=== PATIENT | female | born 1935 | race Caucasian/White ===

== ENCOUNTER 2021-02-26 14:54 | Inpatient (IN) | payer MEDICARE, OTHER ==
[~2021-02-26] VITALS: Ht 160 cm; Wt 63.5 kg
--- NOTE | 2021-02-26 15:37 | PHYS DOC ---
General Adult EDM: Chief Complaint: ALTERED MENTAL STATUS HPI: HPI: Patient is a 85-year-old female coming in with daughter from [facility] for altered mental status and sleepiness. Patient's primary care physician at the facility was wanting her to come in for an ABG to monitor for carbon dioxide retention secondary to her COPD. Patient daughter is also concerned about a urinary tract infection due to urinary frequency. Patient denies any pain or shortness of breath. States she just feels tired. Review of Systems: Review of Systems: All other systems within normal limits except for as noted in the HPI Allergies: Allergies: Allergies Coded Allergies Type Severity Reaction Last Updated Verified No Known Drug Allergies 02/26/21 No Physical Exam: PE: Constitutional: Well developed, well nourished, no acute distress, non-toxic appearance. [] HENT: Normocephalic, atraumatic, bilateral external ears normal, nose normal. [] Eyes: PERRLA, conjunctiva normal, no discharge. [] Neck: No rigidity, supple, no stridor. [] Cardiovascular: Regular rate and rhythm, brisk cap refill. Symmetric radial and DP pulses [] Lungs & Thorax: Non labored symmetric respirations, no tachypnea or respiratory distress [] Abdomen: Soft, nondistended. Skin: Warm, dry, no erythema, no rash. [] Back: Unremarkable Extremities: No deformities, range of motion grossly intact, no lower extremity edema [] Neurologic: Alert and oriented X 3, no focal deficits noted. [] Psychologic: Affect normal, judgement normal, mood normal. [] EKG: EKG: Sinus rhythm, heart rate 76 bpm, no ST ovation depression, no ectopy. Normal axis. [] Radiology/Procedures: Radiology/Procedures: AP chest. HISTORY: Altered mental status, COPD AP view was taken of the chest. Heart is upper normal in size. There are interstitial infiltrates or fibrosis in the left lung, the pattern is worsened compared to a CT from December 2014.. There is no pleural effusion. No other acute infiltrates are noted. The aorta is mildly tortuous with atherosclerotic change. IMPRESSION: 1. Mild interstitial infiltrates left lung. 2. COPD. 3. No other acute acute infiltrates. [] Heart Score: C/O Chest Pain: No Risk Factors: Risk Factors: DM, Current or recent (<one month) smoker, HTN, HLP, family history of CAD, obesity. Risk Scores: Score 0 - 3: 2.5% MACE over next 6 weeks - Discharge Home Score 4 - 6: 20.3% MACE over next 6 weeks - Admit for Clinical Observation Score 7 - 10: 72.7% MACE over next 6 weeks - Early Invasive Strategies Course & Med Decision Making: Course & Med Decision Making Pertinent Labs and Imaging studies reviewed. (See chart for details) Discussed with Dr. Raygoza, will admit to the ICU and placed on BiPAP. [] Dragon Disclaimer: Dragon Disclaimer: This electronic medical record was generated, in whole or in part, using a voice recognition dictation system. Departure Departure: Impression: Primary Impression: Hypercapnia Disposition: ADMITTED INPATIENT Admitting Physician: Ronel Raygoza Condition: IMPROVED Referrals: KATARINA BROOKE (PCP) MAIRA LUCERO MD Feb 26, 2021 15:37
[2021-02-26 15:56] LABS: BGAS PH 7.32 (7.35-7.45)
[2021-02-26] MEDS: IV NORMAL SALINE 1,000ML 1,000 ML IV SCH (16:15)
[2021-02-26] MEDS ORDERED: MORPHINE SULFATE 2 MG/ML DISP.SYRIN. IVP PRN (16:15)
[2021-02-26] MEDS ORDERED: ACETAMINOPHEN 325 MG TABLET PO PRN (16:15)
[2021-02-26] MEDS ORDERED: ONDANSETRON PF 4 MG/2 ML VIAL. IVP PRN (16:15)
--- NOTE | 2021-02-26 16:17 | RAD ---
AP chest. HISTORY: Altered mental status, COPD AP view was taken of the chest. Heart is upper normal in size. There are interstitial infiltrates or fibrosis in the left lung, the pattern is worsened compared to a CT from December 2014.. There is no pleural effusion. No other acute infiltrates are noted. The aorta is mildly tortuous with atheroscler otic change. IMPRESSION: 1. Mild interstitial infiltrates left lung. 2. COPD. 3. No other acute acute infiltrates. Electronically signed by: Karl Hamm MD (02/26/2021 4:14 PM) [facility]
[2021-02-26 16:18] LABS: BASO % 1 % (0-3); EOS # 0.2 x10^3/uL (0.0-0.7); EOS % 5 % (0-3); HEMATOCRIT 27.9 % (36.0-47.0); HEMOGLOBIN 9.1 g/dL (12.0-15.5); LYMPH # 0.5 x10^3/uL (1.0-4.8); LYMPH % 16 % (24-48); MEAN CORPUSCULAR HEMOGLOBIN 29 pg (25-35); MEAN CORPUSCULAR HGB CONC 33 g/dL (31-37); MEAN CORPUSCULAR VOLUME 88 fL (79-100); MONO # 0.6 x10^3/uL (0.0-1.1); MONO % 18 % (0-9); NEUT # 2.1 x10^3uL (1.8-7.7); NEUT % 61 % (31-73); PLATELET COUNT 249 x10^3/uL (140-400); RED BLOOD COUNT 3.19 x10^6/uL (3.50-5.40); RED CELL DISTRIBUTION WIDTH 13.3 % (11.5-14.5); WHITE BLOOD COUNT 3.5 x10^3/uL (4.0-11.0)
--- NOTE | 2021-02-26 16:25 | EKG ---
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
[2021-02-26 16:32] LABS: CALCIUM 8.7 mg/dL (8.5-10.1); CREATININE 0.9 mg/dL (0.6-1.0); GFR 59.8; POTASSIUM 4.1 mmol/L (3.5-5.1)
[2021-02-26 16:37] LABS: ALBUMIN 2.7 g/dL (3.4-5.0); ALBUMIN/GLOBULIN RATIO 0.7 (1.0-1.7); MAGNESIUM 1.8 mg/dL (1.8-2.4); PHOSPHORUS 4.1 mg/dL (2.6-4.7); TOTAL BILIRUBIN 0.2 mg/dL (0.2-1.0); TOTAL PROTEIN 6.4 g/dL (6.4-8.2)
[2021-02-26 16:50] LABS: BILIRUBIN,URINE NEG (NEG); CLARITY,URINE CLEAR; COLOR,URINE YELLOW; GLUCOSE,URINE NEG (NEG); NITRITE,URINE NEG (NEG); RBC,URINE OCC /HPF (0-2)
[2021-02-26 16:51] LABS: BACTERIA,URINE MOD /HPF (0-FEW); SQUAMOUS EPITHELIAL CELL,UR MANY /LPF
[2021-02-26 18:10] VITALS: BP 152/68
[2021-02-26 18:26] VITALS: BP 145/75
[2021-02-26 19:00] VITALS: BP 131/61
[2021-02-26] MEDS ORDERED: ALPR0.5T PO (19:43)
[2021-02-26] MEDS ORDERED: LOSA50TA86 PO (19:43)
[2021-02-26] MEDS ORDERED: MAGN400O7 PO (19:43)
[2021-02-26] MEDS ORDERED: MULT-237 PO (19:43)
[2021-02-26] MEDS ORDERED: POTA10TA5 PO (19:43)
[2021-02-26] MEDS ORDERED: BUDE0.25 IH (19:43)
[2021-02-26] MEDS ORDERED: ASPI-424 PO (19:43)
[2021-02-26] MEDS ORDERED: BISA10SU4 RC (19:43)
[2021-02-26] MEDS ORDERED: CITA10TA8 PO (19:43)
[2021-02-26] MEDS ORDERED: DILT120T PO (19:43)
[2021-02-26] MEDS ORDERED: DOCU-109 PO (19:43)
[2021-02-26] MEDS ORDERED: ONDA4TAB7 PO (19:43)
[2021-02-26] MEDS ORDERED: BUME1TAB3 PO (19:43)
[2021-02-26] MEDS ORDERED: OMEP20TA63 PO (19:43)
[2021-02-26] MEDS ORDERED: BISACODYL 10 MG SUPP.RECT RC PRN (20:30)
[2021-02-26] MEDS ORDERED: MAGNESIUM HYDROXIDE 2,400 MG/30 ML ORAL.SUSP. PO PRN (20:30)
[2021-02-26] MEDS ORDERED: IPRATRPIUM/ALBUTEROL 0.5/2.5MG 3 ML NEBU. NEB PRN (20:30)
[2021-02-26 21:00] VITALS: BP 148/67
[2021-02-26] MEDS ORDERED: BUDESONIDE 0.25 MG IH SCH (21:00)
[2021-02-26] MEDS ORDERED: ONDANSETRON ODT 4 MG TAB.RAPDIS PO PRN (21:00)
[2021-02-26 21:05] LABS: BGAS PH 7.32 (7.35-7.45)
[2021-02-26] MEDS: DOCUSATE SODIUM 100 MG CAPSULE PO SCH (21:39)
[2021-02-26] MEDS: POTASSIUM CHLORIDE 10 MEQ TABLET.ER. PO SCH (21:39)
[2021-02-26] MEDS: ALPRAZolam 0.5 MG TABLET PO SCH (21:40)
[2021-02-26 21:52] VITALS: BP 150/79
--- NOTE | 2021-02-26 22:38 | EKG ---
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
[2021-02-26 22:44] VITALS: BP 123/49
[2021-02-27] VITALS (21 sets, daily range): BP systolic 114–150; BP diastolic 50–75
[2021-02-27 07:04] LABS: CREATININE 0.7 mg/dL (0.6-1.0); GFR 79.9; POTASSIUM 4.3 mmol/L (3.5-5.1)
[2021-02-27 07:05] LABS: BASO % 1 % (0-3); EOS # 0.2 x10^3/uL (0.0-0.7); EOS % 5 % (0-3); HEMATOCRIT 28.3 % (36.0-47.0); HEMOGLOBIN 9.3 g/dL (12.0-15.5); LYMPH # 0.4 x10^3/uL (1.0-4.8); LYMPH % 12 % (24-48); MEAN CORPUSCULAR HEMOGLOBIN 29 pg (25-35); MEAN CORPUSCULAR HGB CONC 33 g/dL (31-37); MEAN CORPUSCULAR VOLUME 88 fL (79-100); MONO # 0.5 x10^3/uL (0.0-1.1); MONO % 14 % (0-9); NEUT # 2.5 x10^3uL (1.8-7.7); NEUT % 68 % (31-73); PLATELET COUNT 250 x10^3/uL (140-400); RED BLOOD COUNT 3.23 x10^6/uL (3.50-5.40); RED CELL DISTRIBUTION WIDTH 13.2 % (11.5-14.5); WHITE BLOOD COUNT 3.6 x10^3/uL (4.0-11.0)
[2021-02-27] MEDS: MULTIVITAMIN with MINERAL TABLET. PO SCH (08:12)
[2021-02-27] MEDS: ALPRAZolam 0.5 MG TABLET PO SCH ×2 (08:12→21:46)
[2021-02-27] MEDS: PANTOPRAZOLE 40 MG TABLET. PO SCH (08:12)
[2021-02-27] MEDS: ASPIRIN ENTERIC COATED 81 MG TABLET.DR. PO SCH (08:12)
[2021-02-27] MEDS: CITALOPRAM 10 MG TABLET. PO SCH (08:12)
[2021-02-27] MEDS: LOSARTAN 50 MG TABLET. PO SCH (08:13)
[2021-02-27] MEDS: DOCUSATE SODIUM 100 MG CAPSULE PO SCH ×2 (08:13→21:46)
[2021-02-27] MEDS: POTASSIUM CHLORIDE 10 MEQ TABLET.ER. PO SCH ×2 (08:15→21:46)
[2021-02-27] MEDS: BUDESONIDE 0.5 MG/2 ML NEBU NEB SCH ×2 (08:15→20:00)
[2021-02-27] MEDS: BUMETANIDE 1 MG TABLET PO SCH (08:15)
[2021-02-27] MEDS ORDERED: methylPREDNISolone SOD SUCC PF 125 MG/2 ML VIAL. IV ONE (12:15)
[2021-02-27] MEDS: IV NORMAL SALINE 1,000ML 1,000 ML IV SCH (12:15)
[2021-02-27] MEDS ORDERED: AMOXICILLIN/K CLAV 500/125MG TABLET. PO SCH (12:30)
[2021-02-27] MEDS ORDERED: IOHEXOL 350 MG/ML 100 ML VIAL. IV ONE (12:30)
[2021-02-27] MEDS: OXYBUTYNIN CHLORIDE 5 MG TABLET PO SCH ×2 (13:00→21:46)
--- NOTE | 2021-02-27 13:32 | RAD ---
EXAM: CT angiography of the chest with intravenous contrast. HISTORY: Shortness of breath. TECHNIQUE: Computed tomographic images of the chest were obtained following the administration of int ravenous contrast according to angiography protocol. Multiplanar reformatting was performed and three dimensional maximum intensity projection images were obtained. *One or more of the following individualized dose reduction techniques were utilized for this examina tion: 1. Automated exposure control. 2. Adjustment of the mA and/or kV according to patient size. 3. Use of iterative reconstruction technique. COMPARISON: None. FINDINGS: There is no evidence of pulmonary embolism. There are prominent central pulmonary arteries likely due to a component of pulmonary artery hypertension. There is cardia megaly. There is calcifie d atherosclerotic plaque involving the coronary arteries and aorta and aortic branch vessels. There a re nonspecific mediastinal and hilar lymph nodes. These may be reactive in etiology. There is pulmonary emphysema. There is inferior lateral left upper lobe interstitial infiltrate likel y superimposed on chronic interstitial changes. There is also left basilar atelectasis or infiltrate in a small left pleural effusion. There is a trace right pleural effusion with posterior dependent at electasis. There is adrenal gland thickening. No suspicious adrenal lesion is seen. The gallbladder i s absent. The stomach is distended. There are degenerative changes throughout the spine. There is no acute osseous finding. IMPRESSION: 1. No evidence of pulmonary embolism. 2. Suspected lateral left upper lobe interstitial infiltrate superimposed on chronic interstitial nick nges. There is also a small left pleural effusion with basilar atelectasis or interstitial infiltrate 3. Trace right pleural effusion with right basilar atelectasis. 4. Severe emphysema. 5. Cardiomegaly, atherosclerosis and findings suggesting chronic pulmonary artery hypertension. 6. Nonspecific mediastinal and hilar lymph nodes, likely reactive given the aforementioned finding. Electronically signed by: Charissa Medrano MD (02/27/2021 1:30 PM) [id number]
--- NOTE | 2021-02-27 14:00 | HP ---
ADMIT DATE: 02/26/2021 HISTORY OF PRESENT ILLNESS: The patient is an 85-year-old female patient, currently at [facility] for rehabilitation after admission to [facility] for COPD exacerbation. She was brought to the emergency room with altered mental status and sleepiness, we have actually investigated her extensively there and all her lab work and chest x-ray were unremarkable. However, because of altered mental status and our inability to check her blood gases, a decision was made to send her to [facility] to check her blood gas. She was retaining carbon dioxide and in turn to be admitted if need be. She was actually seen in the emergency room and her blood gases showed a pH of 7.32, pCO2 of 75, pO2 was 200, bicarbonate was clearly high at 38 and oxygen saturation 100% on FIO2 of 36% and therefore, the patient was admitted with acute on chronic hypoxic hypercapnic respiratory failure, COPD exacerbation. Her lab work showed her white cell count was in fact only 3.5. She has also anemia that is normochromic normocytic with a hemoglobin of 9, hematocrit 27 with the platelet count 249,000. She has also urinary frequency and urgency; however, her urinalysis is essentially unremarkable. She was admitted and with the plan to start her on BiPAP machine; however, given the fact that her pO2 was high at 200, we decided to cut down on her oxygen as that might be the reason for her carbon dioxide or at least in part her carbon dioxide retention and the patient herself was very lethargic and did not complain of any chest pain. PAST MEDICAL HISTORY: Significant for chronic obstructive pulmonary disease, acute on chronic respiratory failure with hypoxia, acute on chronic diastolic congestive heart failure, pulmonary hypertension, paroxysmal atrial fibrillation, oropharyngeal dysphagia, hypertensive heart disease, anxiety disorder, dependence on supplemental oxygen. PAST SURGICAL HISTORY: Unremarkable. ALLERGIES: She has no known drug allergies. MEDICATIONS: She was on the following medications: She is on diltiazem hydrochloride 120 mg once a day, losartan potassium 50 mg once a day, aspirin 81 mg once a day, citalopram hydrobromide for Celexa 10 mg once a day, alprazolam 0.5 mg twice a day, potassium chloride 10 mEq twice a day, bumetanide 1 mg daily, budesonide 0.5/2 mL twice a day, bisacodyl 2 mg rectally daily p.r.n. for constipation, Colace 100 mg twice a day, magnesium hydroxide for milk of magnesia 30 mL p.o. daily p.r.n. for constipation, ondansetron 4 mg IV every 6 hours, omeprazole 40 mg once a day, multivitamin one tablet once a day. FAMILY HISTORY: Noncontributory. SOCIAL HISTORY: She lives alone. She does not smoke, drink alcohol or do any recreational drugs. She has had daughter who is supportive. REVIEW OF SYSTEMS: As per history of present illness. PHYSICAL EXAMINATION: GENERAL: On arrival to the emergency room, the patient looked pale, somewhat cachectic, but no jaundice, cyanosis or thyromegaly. No jugular venous distention or edema. VITAL SIGNS: Her heart rate was 81, blood pressure was 131/68, temperature was 98.3, respiratory rate was 18, and oxygen saturation was 96% on 3 liters of oxygen by nasal cannula. HEAD, EYES, EARS, NOSE AND THROAT: Normocephalic, atraumatic. NECK: Supple. HEART: Showed normal first and second heart sounds, no gallop, murmur. CHEST: Central trachea. Equal reduced expansion, reduced air entry. Vesicular breath sounds. I could not appreciate any rhonchi, but she has crepitation mostly in the right side posteriorly. ABDOMEN: Scaphoid, soft, nontender. NEUROLOGIC: She was lethargic, but arousable. Cranial nerves intact. She moves extremities without difficulty. She has no obvious neurological deficit. Her affect, judgment and mood were all normal. LABORATORY DATA: Her EKG showed a heart rate of 76 beats per minute. Her chest x-ray showed mild interstitial infiltrate in the left lung. No other acute infiltrate and obviously markedly hyperinflated lungs. The patient was admitted with acute hypercapnic respiratory failure, COPD exacerbation. Her lab work on admission showed a white cell count of 3500, hemoglobin 9, hematocrit 27, MCV 88 and platelet count 249,000 with a manual differential shows 61% polymorphs, 16% lymphocytes, 18% monocytes and 5% eosinophils. Her chemistry showed a serum sodium 137, potassium 4.1, chloride 101, bicarbonate 36, anion gap of 0, BUN of 17, creatinine 0.9. Estimated GFR was 59 mL per minute. Her glucose was 126, calcium was 8.7, phosphorus was 4.1, magnesium was 1.8. Total bilirubin, AST, ALT, alkaline phosphatase were normal. Total protein 6.4, albumin was 2.7 and her urinalysis showed the urine was yellow, clear with a pH of 6, specific gravity of 1.025. The urine showed trace of protein, but negative for glucose, ketones, trace of blood, negative for nitrite and leukocyte esterase. In summary, this is an 85-year-old female patient, was admitted with acute hypercapnic respiratory failure, COPD exacerbation. She is known to have chronic diastolic congestive heart failure, pulmonary hypertension, paroxysmal atrial fibrillation that is rate controlled, not anticoagulated. Anxiety disorder and dependence on supplemental oxygen. Initially, we cut down her oxygen to see if that will improve and we did repeat her blood gas again that showed a pH of 7.32, pCO2 of 70, pO2 of 68, bicarbonate 36 and oxygen saturation was 91% on FIO2 28%. We will observe her overnight and see how she does with that and continue with all her medications. JENN DR: Bibiana TID: [id number]
[2021-02-27] MEDS: PIPERACILLIN/TAZOBACTAM 3.375 GM in IV NORMAL SALINE 50ML 50 ML IV SCH (18:41)
[2021-02-27] MEDS: IPRATRPIUM/ALBUTEROL 0.5/2.5MG 3 ML NEBU. NEB SCH ×2 (18:42→20:28)
[2021-02-27] MEDS ORDERED: BUDESONIDE 0.5 MG/2 ML NEBU NEB SCH (20:00)
[2021-02-27] MEDS: methylPREDNISolone SOD SUCC PF 40 MG/ML VIAL. IV SCH (20:27)
[2021-02-27 21:17] LABS: BGAS PH 7.35 (7.35-7.45)
[2021-02-27] MEDS ORDERED: ALBUTEROL SULFATE 2.5 MG/3 ML NEBU. NEB PRN (21:45)
[2021-02-27] MEDS: MONTELUKAST 10 MG TABLET. PO SCH (21:46)
[2021-02-27] MEDS: LINEZOLID 600 MG TABLET PO SCH (21:47)
[2021-02-28] VITALS (22 sets, daily range): BP systolic 95–151; BP diastolic 53–71
[2021-02-28] MEDS: PIPERACILLIN/TAZOBACTAM 3.375 GM in IV NORMAL SALINE 50ML 50 ML IV SCH ×4 (00:59→18:01)
--- NOTE | 2021-02-28 01:08 | PN ---
DATE: 02/27/2021 SUBJECTIVE: The patient was admitted yesterday with altered mental status, was found to be in acute hypercapnic respiratory failure. We did cut down her oxygen and repeated her labs to bring her carbon dioxide down from 75-70; however, she continued to be extremely short of breath and desaturates immediately with any exertion. PHYSICAL EXAMINATION: GENERAL: When I examined her this morning, she looked pale, cachectic, but not jaundiced and cyanosed. No lymphadenopathy, no thyromegaly. No jugular venous distention or edema. VITAL SIGNS: Heart rate was 76, blood pressure is 114/55. Her temperature was 98.3, respiratory rate 20, and oxygen saturation was 97% on 3 liters of oxygen at rest. HEAD, EYES, EARS, NOSE AND THROAT: Normocephalic, atraumatic. NECK: Supple. HEART: Normal first and second heart sounds, no gallop, murmur. CHEST: Central trachea. Equal reduced expansion, reduced air entry. Vesicular breath sounds with crepitation mostly on the right side posteriorly. I could not appreciate any rhonchi. ABDOMEN: Scaphoid, soft, nontender. NEUROLOGIC: She is awake, alert, responding appropriately. Cranial nerves intact. She moves extremities without difficulty. LABORATORY DATA: This morning showed her white cell count to be still low at 3.6, hemoglobin 9.3, hematocrit was 28, MCV was 88 and platelet count 250,000. Her chemistry showed that her serum sodium was 137, potassium 4.3, chloride 100, bicarbonate 37, anion gap 0, BUN 16, creatinine 0.7. Estimated GFR was 80 mL per minute. Her glucose 110, calcium was 9. IMPRESSION: 1. Acute hypercapnic respiratory failure. 2. Chronic obstructive pulmonary disease exacerbation, questionable, perhaps healthcare-associated pneumonia, although the patient is afebrile. Her white cell count is normal; however, the nursing staff that her sputum was yellowish in color and therefore, decision was made to start her on steroids at 125 mg initially and then 40 mg IV q.8 hours. We will start her on Augmentin 500/125 one tablet twice a day, Singulair 10 mg at bedtime, Pulmicort 0.5 mg 2 mL by nebulizer twice a day. We will also arrange for her to have a CT scan of the chest with PE protocol and add oxybutynin because of her overactive bladder. AMM/JAN DR: Bibiana TID: [id number]
[2021-02-28] MEDS: methylPREDNISolone SOD SUCC PF 40 MG/ML VIAL. IV SCH ×3 (06:29→22:03)
[2021-02-28 07:14] LABS: HEMATOCRIT 28.2 % (36.0-47.0); HEMOGLOBIN 9.3 g/dL (12.0-15.5); RED BLOOD COUNT 3.24 x10^6/uL (3.50-5.40); RED CELL DISTRIBUTION WIDTH 12.9 % (11.5-14.5); WHITE BLOOD COUNT 7.1 x10^3/uL (4.0-11.0)
[2021-02-28 07:18] LABS: ALBUMIN 2.7 g/dL (3.4-5.0); ALBUMIN/GLOBULIN RATIO 0.7 (1.0-1.7); CALCIUM 9.3 mg/dL (8.5-10.1); CREATININE 0.8 mg/dL (0.6-1.0); GFR 68.5; POTASSIUM 4.5 mmol/L (3.5-5.1); TOTAL BILIRUBIN 0.2 mg/dL (0.2-1.0); TOTAL PROTEIN 6.7 g/dL (6.4-8.2)
[2021-02-28] MEDS: BUDESONIDE 0.5 MG/2 ML NEBU NEB SCH ×2 (08:07→20:19)
[2021-02-28] MEDS: LOSARTAN 50 MG TABLET. PO SCH (08:07)
[2021-02-28] MEDS: MULTIVITAMIN with MINERAL TABLET. PO SCH (08:07)
[2021-02-28] MEDS: DOCUSATE SODIUM 100 MG CAPSULE PO SCH ×2 (08:07→20:19)
[2021-02-28] MEDS: LINEZOLID 600 MG TABLET PO SCH ×2 (08:08→20:19)
[2021-02-28] MEDS: ASPIRIN ENTERIC COATED 81 MG TABLET.DR. PO SCH (08:08)
[2021-02-28] MEDS: ALPRAZolam 0.5 MG TABLET PO SCH ×2 (08:08→20:19)
[2021-02-28] MEDS: POTASSIUM CHLORIDE 10 MEQ TABLET.ER. PO SCH ×2 (08:08→20:19)
[2021-02-28] MEDS: OXYBUTYNIN CHLORIDE 5 MG TABLET PO SCH ×2 (08:08→20:19)
[2021-02-28] MEDS: PANTOPRAZOLE 40 MG TABLET. PO SCH (08:09)
[2021-02-28] MEDS: BUMETANIDE 1 MG TABLET PO SCH (08:09)
[2021-02-28] MEDS: CITALOPRAM 10 MG TABLET. PO SCH (08:09)
[2021-02-28] MEDS: LACTOBACILLUS RHAMNOSUS GG 1 CAPSULE. PO SCH ×2 (08:10→20:19)
--- NOTE | 2021-02-28 12:43 | EKG ---
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
[2021-02-28] MEDS: MONTELUKAST 10 MG TABLET. PO SCH (20:19)
[2021-03-01] VITALS (25 sets, daily range): BP systolic 127–160; BP diastolic 67–98
[2021-03-01] MEDS: PIPERACILLIN/TAZOBACTAM 3.375 GM in IV NORMAL SALINE 50ML 50 ML IV SCH ×5 (00:02→23:35)
[2021-03-01] MEDS: methylPREDNISolone SOD SUCC PF 40 MG/ML VIAL. IV SCH ×3 (05:37→21:49)
[2021-03-01 06:33] LABS: HEMATOCRIT 28.5 % (36.0-47.0); HEMOGLOBIN 9.2 g/dL (12.0-15.5); RED BLOOD COUNT 3.26 x10^6/uL (3.50-5.40); RED CELL DISTRIBUTION WIDTH 13.2 % (11.5-14.5)
[2021-03-01 06:52] LABS: ALBUMIN 2.7 g/dL (3.4-5.0); ALBUMIN/GLOBULIN RATIO 0.7 (1.0-1.7); CALCIUM 8.8 mg/dL (8.5-10.1); CREATININE 0.9 mg/dL (0.6-1.0); GFR 59.8; POTASSIUM 4.5 mmol/L (3.5-5.1); TOTAL BILIRUBIN 0.2 mg/dL (0.2-1.0); TOTAL PROTEIN 6.5 g/dL (6.4-8.2)
[2021-03-01 08:17] LABS: BGAS PH 7.34 (7.35-7.45)
[2021-03-01] MEDS: PANTOPRAZOLE 40 MG TABLET. PO SCH (08:42)
[2021-03-01] MEDS: BUMETANIDE 1 MG TABLET PO SCH (08:42)
[2021-03-01] MEDS: ASPIRIN ENTERIC COATED 81 MG TABLET.DR. PO SCH (08:42)
[2021-03-01] MEDS: ALPRAZolam 0.5 MG TABLET PO SCH ×2 (08:43→20:26)
[2021-03-01] MEDS: DOCUSATE SODIUM 100 MG CAPSULE PO SCH ×2 (08:43→20:27)
[2021-03-01] MEDS: LINEZOLID 600 MG TABLET PO SCH ×2 (08:43→20:26)
[2021-03-01] MEDS: OXYBUTYNIN CHLORIDE 5 MG TABLET PO SCH ×2 (08:43→20:27)
[2021-03-01] MEDS: LACTOBACILLUS RHAMNOSUS GG 1 CAPSULE. PO SCH ×2 (08:43→20:26)
[2021-03-01] MEDS: CITALOPRAM 10 MG TABLET. PO SCH (08:43)
[2021-03-01] MEDS: MULTIVITAMIN with MINERAL TABLET. PO SCH (08:43)
[2021-03-01] MEDS: LOSARTAN 50 MG TABLET. PO SCH (08:44)
[2021-03-01] MEDS: BUDESONIDE 0.5 MG/2 ML NEBU NEB SCH ×2 (08:45→20:27)
[2021-03-01] MEDS: POTASSIUM CHLORIDE 10 MEQ TABLET.ER. PO SCH ×2 (08:46→20:26)
--- NOTE | 2021-03-01 09:36 | PN ---
DATE: 02/28/2021 SUBJECTIVE: The patient is resting, slightly propped up in bed, in no apparent respiratory distress. PHYSICAL EXAMINATION: GENERAL: She is awake, alert, pale. No jaundice, cyanosis or thyromegaly. VITAL SIGNS: Heart rate was 82, blood pressure was 133/64, temperature was 98.7, respiratory rate was 18 and oxygen saturation was 93% on 3 liters of oxygen. HEENT: Normocephalic, atraumatic. NECK: Supple. HEART: Normal first and second heart sounds. No gallop, rub or murmur. CHEST: Shows central trachea, equal and reduced expansion, reduced air entry, vesicular breath sounds. Very few crepitations, mostly in the left side posteriorly. I could not appreciate any rhonchi, although she has obviously received breathing treatment. ABDOMEN: Scaphoid, soft, nontender. NEUROLOGIC: She is awake, alert, responding appropriately. All cranial nerves intact. She moves extremities without difficulty. Unfortunately, she desaturates immediately with any exertion. When she was on 4 liters of oxygen, her carbon dioxide had risen dramatically; we cut that down to 3 liters now. Her most recent blood gases as of yesterday showed a pH of 7.35, pCO2 of 66, pO2 of 57, bicarbonate 37 and oxygen saturation was 87% on FiO2 of ____%. LABORATORY DATA: This morning showed a white cell count of 7000, hemoglobin 9.3, hematocrit 28, MCV 87 and platelet count 292,000. Her chemistry showed a serum sodium of 137, potassium 4.5, chloride 97, bicarbonate 36, anion gap of 4, BUN 20, creatinine 0.8. Estimated GFR was 68 mL per minute. Her glucose 139, calcium was 9.3. Total bilirubin, AST, ALT, alkaline phosphatase were normal. Beta natriuretic peptide was 480, total protein was 6.7, albumin was 2.7. Urinalysis essentially unremarkable. ASSESSMENT: 1. Acute hypercapnic respiratory failure. 2. Chronic obstructive pulmonary disease exacerbation. 3. Healthcare-associated pneumonia. 4. Acute on chronic diastolic congestive heart failure. 5. Atrial fibrillation, rate controlled, not anticoagulated. PLAN: To continue with current plan of management. I spoke with her daughter and explained that she is stable and, if anything, she looks somewhat better in terms of blood gases. We will consult physical and occupational therapy, and see if we can work with her with a higher oxygen on exertion and, if obviously showed any signs of deterioration, we can always transfer her to [facility]. When I broached the subject of DNR/DNI, the daughter did not want to talk about it and said that if she shows any signs of deterioration, she wants to be transferred to [facility], although the patient herself said that she does not want any chest compression, does not want any cardioversion or intubation. DERICK DR: Bibiana TID: [id number]
[2021-03-01] MEDS: MONTELUKAST 10 MG TABLET. PO SCH (20:26)
[2021-03-02] VITALS (14 sets, daily range): BP systolic 143–166; BP diastolic 74–90
[2021-03-02] MEDS: methylPREDNISolone SOD SUCC PF 40 MG/ML VIAL. IV SCH ×3 (05:34→21:55)
[2021-03-02] MEDS: PIPERACILLIN/TAZOBACTAM 3.375 GM in IV NORMAL SALINE 50ML 50 ML IV SCH ×4 (05:35→23:44)
[2021-03-02 06:08] LABS: HEMATOCRIT 29.1 % (36.0-47.0); HEMOGLOBIN 9.5 g/dL (12.0-15.5); RED BLOOD COUNT 3.34 x10^6/uL (3.50-5.40); RED CELL DISTRIBUTION WIDTH 13.4 % (11.5-14.5)
[2021-03-02 06:28] LABS: ALBUMIN 2.5 g/dL (3.4-5.0); ALBUMIN/GLOBULIN RATIO 0.7 (1.0-1.7); CALCIUM 8.7 mg/dL (8.5-10.1); CREATININE 0.9 mg/dL (0.6-1.0); GFR 59.8; POTASSIUM 4.8 mmol/L (3.5-5.1); TOTAL BILIRUBIN 0.2 mg/dL (0.2-1.0)
[2021-03-02] MEDS: PANTOPRAZOLE 40 MG TABLET. PO SCH (07:30)
[2021-03-02] MEDS: BUMETANIDE 1 MG TABLET PO SCH (09:00)
[2021-03-02] MEDS: BUDESONIDE 0.5 MG/2 ML NEBU NEB SCH ×2 (09:13→20:11)
[2021-03-02 09:30] LABS: BGAS PH 7.38 (7.35-7.45)
--- NOTE | 2021-03-02 09:41 | PN ---
DATE: 03/01/2021 SUBJECTIVE: The patient is resting, slightly propped up in bed in no apparent distress. She seemed to be somewhat more confused today; however, she managed to walk with physical therapy, placed inside her room. She has an episode of rapid AFib nighttime, although I do not see documented anywhere here. OBJECTIVE: GENERAL: When I examined her, she looked well and was clearly in no apparent respiratory distress. She was pale, but no jaundice, cyanosis, no lymphadenopathy, no thyromegaly, no jugular venous distention, no lower limb edema. VITAL SIGNS: Her heart rate was 78, blood pressure is 139/74, temperature was 98.9, respiratory rate was 17 and oxygen saturation was 92% on 3 liters of oxygen. HEAD, EYES, EARS, NOSE AND THROAT: Normocephalic, atraumatic. NECK: Supple. HEART: Showed normal first and second heart sounds, no gallop, murmur. CHEST: Shows central trachea equally reduced expansion, reduced air entry, vesicular breath sounds. I could not appreciate if there is some few crepitations heard posteriorly on the left side. I could not appreciate any rhonchi. ABDOMEN: Distended, soft, nontender. NEUROLOGIC: She is awake, alert, somewhat confused. All cranial nerves intact. She moves extremities without difficulty. Her intake was 1800. No output was recorded. LABORATORY DATA: This morning showed a white cell count 12,000, hemoglobin 9, hematocrit 28, MCV 87, platelet count 320,000. Serum sodium 137, potassium 4.5, chloride 99, bicarbonate 35, anion gap of 3, BUN 22, creatinine 0.9. Estimated GFR was 59 mL per minute. Her glucose was 180. Calcium was 8.8. Total bilirubin, AST, ALT, alkaline phosphatase were normal. Her total protein is 6.5, albumin was 2.7. Her blood gas this morning showed a pH of 7.34, pCO2 of 69, pO2 of 76, bicarbonate 37 and oxygen saturation was 93% on FIO2 of 34%. ASSESSMENT: 1. Acute hypercapnic respiratory failure. 2. Chronic obstructive pulmonary disease exacerbation. 3. Healthcare-associated pneumonia. 4. Acute on chronic diastolic congestive heart failure. 5. Atrial fibrillation, rate controlled, not anticoagulated. 6. Pulmonary hypertension. PLAN: Obviously to continue with Solu-Medrol. Continue with IV antibiotic. Continue with bronchodilators. Continue with diuretics. For today, I will evaluate her again and hopefully discharge her back to [facility]. RHETT/BUCK DR: Bibiana TID: [id number]
[2021-03-02] MEDS: LOSARTAN 50 MG TABLET. PO SCH (09:54)
[2021-03-02] MEDS: POTASSIUM CHLORIDE 10 MEQ TABLET.ER. PO SCH ×2 (09:54→20:57)
[2021-03-02] MEDS: ALPRAZolam 0.5 MG TABLET PO SCH ×2 (09:55→20:57)
[2021-03-02] MEDS: ASPIRIN ENTERIC COATED 81 MG TABLET.DR. PO SCH (09:55)
[2021-03-02] MEDS: LACTOBACILLUS RHAMNOSUS GG 1 CAPSULE. PO SCH ×2 (09:55→20:57)
[2021-03-02] MEDS: DOCUSATE SODIUM 100 MG CAPSULE PO SCH ×2 (09:55→20:57)
[2021-03-02] MEDS: MULTIVITAMIN with MINERAL TABLET. PO SCH (09:55)
[2021-03-02] MEDS: OXYBUTYNIN CHLORIDE 5 MG TABLET PO SCH ×2 (09:55→20:58)
[2021-03-02] MEDS: CITALOPRAM 10 MG TABLET. PO SCH (09:56)
[2021-03-02] MEDS: LINEZOLID 600 MG TABLET PO SCH ×2 (09:56→20:57)
--- NOTE | 2021-03-02 15:39 | DISCH ---
DISCHARGE ORDERS DISCHARGE DATE: Mar 02, 2021 FINAL DIAGNOSIS acute hypercapnic respiratory failure health care associated pneumonia COPD Exacerbation chronic diastolic CHF CHRONIC ATRIAL FIBRILLATION CONDITION AT DISCHARGE: Stable Code Status: DNR/DNI SNF STAY <30 DAYS: Yes POST DISCHARGE ORDERS: ACTIVITY ORDERS: Activity as tolerated DIET AFTER DISCHARGE: Cardiac DISCHARGE MEDICATIONS: Home Meds Reported Medications Ondansetron Hcl (ZOFRAN) 4 Mg Tablet, 4 MG PO PRN Q6HRS PRN for NAUSEA, TAB 02/26/21 Alprazolam (XANAX) 0.5 Mg Tablet, 1 TAB PO BID for anxiety, #60 TAB 02/26/21 Omeprazole Magnesium (PRILOSEC OTC) 20 Mg Tablet.dr, 40 MG PO DAILY07 for gerd, TAB 02/26/21 Potassium Chloride (KLOR-CON 10) 10 Meq Tablet.er, 10 MEQ PO BID for supplement, TAB.SR 02/26/21 Multivitamin With Minerals (DAILY VITAMIN FORMULA-MINERALS) 1 Each Tablet, 1 EACH PO DAILY for supplement, TAB 02/26/21 Magnesium Hydroxide (MILK OF MAGNESIA) 400 Mg/5 Ml Oral.susp, 400 MG PO PRN BID PRN for CONSTIPATION, LIQUID give 30ml 02/26/21 Bisacodyl (BISACODYL) 10 Mg Supp.rect, 10 MG RC PRN DAILY PRN for CONSTIPATION, SUPP.RECT 0 Refills 02/26/21 Losartan Potassium (COZAAR ) 50 Mg Tablet, 50 MG PO DAILY for HYPERTENSION, TAB 02/26/21 Docusate Sodium (COLACE) 100 Mg Capsule, 100 MG PO BID for stool softener, CAP 02/26/21 Citalopram Hydrobromide (CELEXA) 10 Mg Tablet, 10 MG PO DAILY for depression, TAB 02/26/21 Diltiazem Hcl (CARDIZEM LA) 120 Mg Tab.er.24h, 120 MG PO DAILY for FOR HYPERTENSION, #30 TAB 0 Refills 02/26/21 Bumetanide (BUMETANIDE) 1 Mg Tablet, 1 MG PO DAILY for chf, TAB 02/26/21 Budesonide (BUDESONIDE) 0.25 Mg/2 Ml Ampul.neb, 0.25 MG IH BID for copd, EACH 02/26/21 Aspirin (ADULT LOW DOSE ASPIRIN EC) 81 Mg Tablet.dr, 81 MG PO DAILY for heart health, TAB 02/26/21 STEFANI DIMAS MD Mar 02, 2021 15:39
[2021-03-02] MEDS ORDERED: LOSARTAN 50 MG TABLET. PO SCH (18:45)
[2021-03-02] MEDS: MONTELUKAST 10 MG TABLET. PO SCH (20:57)
--- NOTE | 2021-03-02 22:26 | DS ---
DATE OF DISCHARGE: 03/02/2021 DISCHARGE SUMMARY HOSPITAL COURSE: The patient is an 85-year-old female patient, resident at [facility] who was admitted with acute hypercapnic respiratory failure. Further evaluation showed she has healthcare-associated pneumonia with infiltrate involving her left upper lobe. We did start her with IV Solu-Medrol 125 mg initially and then 40 mg IV every 8 hours. We will also start her on Zyvox and Zosyn. Her white cell count initially was low and has improved and today is within normal range. Her blood gas initially showed a pH of 7.32, pCO2 of 75, pO2 of 200, and bicarbonate of 38. We did actually cut down her oxygen and her carbon dioxide has been in the mid 60s. Today, her pH was 7.38, pCO2 of 59, pO2 of 73, bicarbonate 35, and oxygen saturation was 93%. PHYSICAL EXAMINATION: GENERAL: When I examined her, she was pale, no jaundice, cyanosis, no lymphadenopathy, no thyromegaly, no jugular venous distention, no lower limb edema. VITAL SIGNS: Heart rate was 79, blood pressure is 162/85, temperature was 98.1, respiratory rate was 17 and oxygen saturation was 94% on 2 liters of oxygen. HEAD, EYES, EARS, NOSE, AND THROAT: Normocephalic, atraumatic. NECK: Supple. HEART: Showed normal first and second heart sounds. No gallop, rub or murmur. CHEST: Shows central trachea, equally reduced expansion, reduced air entry. Vesicular breath sounds. No crepitation. I could not appreciate any crepitation or rhonchi. ABDOMEN: Slightly distended, soft, nontender. NEUROLOGIC: She is awake, alert, and responding appropriately. Cranial nerves intact. EXTREMITIES: She moves her extremities without difficulty. INTAKE AND OUTPUT: Her intake over the last 24 hours was 1170. No output was recorded. LABORATORY DATA: This morning showed white cell count of 9000, hemoglobin 9.5, hematocrit 29, MCV 87, and her platelet count of 330,000. Her serum sodium was 138, potassium 4.8, chloride 100, bicarbonate 35, anion gap of 3, BUN 27, creatinine 0.9. Estimated GFR was 59 mL per minute. Her glucose was 149, calcium was 8.7, total bilirubin, AST, ALT, alkaline phosphatase were normal. Total protein 6, albumin was 2.5. Her urinalysis was essentially unremarkable. Her blood gas this morning was 7.38, pCO2 of 59, pO2 of 73, bicarbonate 35, and oxygen saturation was 93%. DISCHARGE MEDICATIONS: She was discharged back to [facility] to continue Lactobacillus rhamnosus 1 capsule twice a day, prednisone 40 mg once a day for 3 days, 30 mg once a day for 3 days, 20 mg once a day for three days, then 10 mg once a day for 3 days, albuterol sulfate 2.5 mg q. 6 hours, montelukast 10 mg at bedtime, oxybutynin chloride 5 mg twice a day, Mucinex 600 mg twice a day, multivitamin one tablet once a day, diltiazem 120 mg daily, losartan potassium was increased to 100 mg once a day, citalopram hydrobromide 10 mg at bedtime, bumetanide 1 mg daily, aspirin 81 mg once a day, Pulmicort 0.5 mg twice a day, Protonix 40 mg daily, potassium chloride 10 mEq twice a day, ondansetron 4 mg p.o. q. 6 hours, Colace 100 mg twice a day, alprazolam 0.5 mg twice a day, milk of magnesia 30 mL p.o. daily p.r.n. for constipation, and bisacodyl 10 mg suppository rectally daily p.r.n. for constipation. FINAL DISCHARGE DIAGNOSES: Acute hypercapnic respiratory failure, improved and has chronic hypoxic hypercapnic respiratory failure, COPD exacerbation, healthcare-associated pneumonia, chronic diastolic congestive heart failure, chronic atrial fibrillation. ANN DR: Bibiana TID: [id number]
[2021-03-03 00:25] VITALS: BP 148/69
[2021-03-03 02:05] VITALS: BP 145/70
[2021-03-03 05:17] VITALS: BP 148/71
[2021-03-03] MEDS: PIPERACILLIN/TAZOBACTAM 3.375 GM in IV NORMAL SALINE 50ML 50 ML IV SCH (05:32)
[2021-03-03] MEDS: methylPREDNISolone SOD SUCC PF 40 MG/ML VIAL. IV SCH (05:32)
[2021-03-03] MEDS: BUDESONIDE 0.5 MG/2 ML NEBU NEB SCH (08:00)
[2021-03-03] MEDS: PANTOPRAZOLE 40 MG TABLET. PO SCH (08:23)
[2021-03-03] MEDS: DOCUSATE SODIUM 100 MG CAPSULE PO SCH (09:00)
[2021-03-03] MEDS ORDERED: LOSARTAN 50 MG TABLET. PO SCH (09:00)
[2021-03-03] MEDS: BUMETANIDE 1 MG TABLET PO SCH (09:00)
[2021-03-03] MEDS: LACTOBACILLUS RHAMNOSUS GG 1 CAPSULE. PO SCH (09:11)
[2021-03-03] MEDS: MULTIVITAMIN with MINERAL TABLET. PO SCH (09:11)
[2021-03-03] MEDS: ALPRAZolam 0.5 MG TABLET PO SCH (09:11)
[2021-03-03] MEDS: POTASSIUM CHLORIDE 10 MEQ TABLET.ER. PO SCH (09:12)
[2021-03-03] MEDS: CITALOPRAM 10 MG TABLET. PO SCH (09:16)
[2021-03-03] MEDS: ASPIRIN ENTERIC COATED 81 MG TABLET.DR. PO SCH (09:16)
[2021-03-03] MEDS: LINEZOLID 600 MG TABLET PO SCH (09:16)
[2021-03-03] MEDS: OXYBUTYNIN CHLORIDE 5 MG TABLET PO SCH (09:18)
[2021-03-03 09:20] VITALS: BP 148/71
[2021-03-03] MEDS ORDERED: predniSONE 20 MG TABLET PO ONE (10:00)
[2021-03-03] MEDS ORDERED: AMOXICILLIN/K CLAV 500/125MG TABLET. PO ONE (10:00)
== END 2021-03-03 11:20 | DRG 177 ==
LOC: ER 14:54 → ICU 18:03
PROVIDERS: ADMIT Internal Medicine; ATTEND Internal Medicine
PROC: 5A09357 Assistance with Respiratory Ventilation, Less than 24 Consecutive Hours, Continuous Positive Airway Pressure (ICD-10-PCS; principal; 2021-02-26)
DX: J15.6 Pneumonia due to other Gram-negative bacteria (principal); J96.22 Acute and chronic respiratory failure with hypercapnia; I50.33 Acute on chronic diastolic (congestive) heart failure; J96.21 Acute and chronic respiratory failure with hypoxia; J44.0 Chronic obstructive pulmonary disease with (acute) lower respiratory infection; I48.20 Chronic atrial fibrillation, unspecified; J44.1 Chronic obstructive pulmonary disease with (acute) exacerbation; J15.9 Unspecified bacterial pneumonia; I48.0 Paroxysmal atrial fibrillation; I27.20 Pulmonary hypertension, unspecified; I11.0 Hypertensive heart disease with heart failure; F41.9 Anxiety disorder, unspecified; Y95 Nosocomial condition; D64.9 Anemia, unspecified; N32.81 Overactive bladder; Z99.81 Dependence on supplemental oxygen; Z87.891 Personal history of nicotine dependence; Z82.49 Family history of ischemic heart disease and other diseases of the circulatory system
CPT/HCPCS: 36415; 36600; 71045; 71275; 80048; 80053; 81001; 82803; 83605; 83735; 83880; 84100; 84484; 85025; 85027; 87086; 93005; 94640; 94660; J2543; J2920; J2930; Q0162; Q9967; 97110; 97116; 97530; 97535; 99285-25

== ENCOUNTER 2022-02-25 12:14 | Emergency (ER) | payer MEDICARE, OTHER ==
[~2022-02-25] VITALS: Ht 160 cm; Wt 63.5 kg
[~2022-02-25 12:14] MED LIST: ALPR0.5T PO; ASPI-424 PO; BISA10SU4 RC; BUDE0.25 IH; BUME1TAB3 PO; CITA10TA8 PO; DILT120T PO; DOCU-109 PO; LOSA50TA86 PO; MAGN400O7 PO; MULT-237 PO; OMEP20TA63 PO; ONDA4TAB7 PO; POTA-112 PO
--- NOTE | 2022-02-25 12:43 | PHYS DOC ---
Past History Past Medical History: Anemia, Anxiety, CHF, COPD, Depression, GERD, Other Additional Past Medical Histor: PULMONARY HTN, Past Surgical History: Appendectomy, Cholecystectomy, Hysterectomy, Other Additional Past Surgical Histo: MASECTOMY Alcohol Use: None General Adult EDM: Chief Complaint: SHORTNESS OF BREATH HPI: HPI: 86-year-old female presents with shortness of breath. She has been getting more short of breath over the last several days. Patient has a history of CHF with peripheral edema. She is not sure if her edema is worse. She thinks it likely is. She is on diuretics. Patient is normally on 3 L of oxygen but is requiring at least 4 at this time. Denies fever or chills. She has not had a significant cough. She denies chest pain. Review of Systems: Review of Systems: Constitutional: Denies fever or chills Eyes: Denies change in visual acuity HENT: Denies nasal congestion or sore throat Respiratory: shortness of breath Cardiovascular: Increased peripheral edema. Denies chest pain. GI: Denies abdominal pain, nausea, vomiting, bloody stools or diarrhea : Denies dysuria Musculoskeletal: Denies back pain or joint pain Integument: Denies rash Neurologic: Denies headache, focal weakness or sensory changes Endocrine: Denies polyuria or polydipsia Lymphatic: Denies swollen glands Psychiatric: Denies depression or anxiety Allergies: Allergies: Allergies Coded Allergies Type Severity Reaction Last Updated Verified No Known Drug Allergies 02/26/21 No Physical Exam: PE: Constitutional: Well developed, well nourished, no acute distress, non-toxic appearance. [] HENT: Normocephalic, atraumatic, bilateral external ears normal, oropharynx moist, no oral exudates, nose normal. [] Eyes: PERRLA, EOMI, conjunctiva normal, no discharge. [] Neck: Normal range of motion, no tenderness, supple, no stridor. [] Cardiovascular:Heart rate regular rhythm, no murmur [] Lungs & Thorax: Bilateral breath sounds diminished but clear to auscultation. Nasal cannula in place. [] Abdomen: Bowel sounds normal, soft, no tenderness, no masses, no pulsatile masses. [] Skin: Warm, dry, no erythema, no rash. [] Back: No tenderness, no CVA tenderness. [] Extremities: 3+ pitting edema of the right upper extremity, 2+ pitting edema of the bilateral lower extremities to the knee. [] Neurologic: Alert and oriented X 3, normal motor function, normal sensory function, no focal deficits noted. [] Psychologic: Affect normal, judgement normal, mood normal. [] Current Patient Data: Vital Signs: Vital Signs Date Time Temp Pulse Resp B/P (MAP) Pulse Ox O2 Delivery O2 Flow Rate FiO2 02/25/22 12:20 148/71 (96) EKG: EKG: [] Radiology/Procedures: Radiology/Procedures: [] Impressions: XR CHEST 1V History: Reason: SOB / Spl. Instructions: / History: Comparison: February 26, 2021 Findings: Small bilateral pleural effusions. Patchy left basilar opacity. No pneumothorax. Unchanged heart size. Impression: 1. Small bilateral pleural effusions. 2. Patchy left basilar opacity, may represent atelectasis or consolidation. Electronically signed by: Lito Alatorre DO (02/25/2022 1:06 PM) [facility] DICTATED AND SIGNED BY: LITO ALATORRE DO DATE: 02/25/22 1305 CC: CYRIL GONZALES DO; KATARINA BROOKE Heart Score: C/O Chest Pain: N/A Risk Factors: Risk Factors: DM, Current or recent (<one month) smoker, HTN, HLP, family history of CAD, obesity. Risk Scores: Score 0 - 3: 2.5% MACE over next 6 weeks - Discharge Home Score 4 - 6: 20.3% MACE over next 6 weeks - Admit for Clinical Observation Score 7 - 10: 72.7% MACE over next 6 weeks - Early Invasive Strategies Course & Med Decision Making: Course & Med Decision Making Pertinent Labs and Imaging studies reviewed. (See chart for details) The patient's chest x-ray suggestive of pneumonia. I will treat her with Rocephin and azithromycin. I spoke with Dr. Raygoza and he has accepted the patient for admission. Her hemoglobin is 6.8 and I have ordered repeat screen ing as well as transfusion of 1 unit. After this, the lab called with an additional critical lab. Her troponin is 1679. I spoke with Dr. Mehta at 1420 and he has recommended that we transfer the patient to [facility]. He has recommended holding off on heparin anticoagulation at this time. He is not opposed to giving the patient a unit of blood for her anemia. I then spoke to Dr. Raygoza at 1422 and he has accepted the patient for transfer to [facility]. He is in agreement with giving the patient a unit of blood when available. The patient will transport by ambulance. [] Dragon Disclaimer: Dragon Disclaimer: This electronic medical record was generated, in whole or in part, using a voice recognition dictation system. Departure Departure: Impression: Primary Impression: Pneumonia Additional Impressions: Anemia NSTEMI (non-ST elevated myocardial infarction) Disposition: 02 SHORT TERM HOSPITAL Admitting Physician: Ronel Raygoza Condition: GUARDED Referrals: KATARINA BROOKE (PCP) CYRIL GONZALES DO Feb 25, 2022 12:43
--- NOTE | 2022-02-25 13:09 | RAD ---
XR CHEST 1V History: Reason: SOB / Spl. Instructions: / History: Comparison: February 26, 2021 Findings: Small bilateral pleural effusions. Patchy left basilar opacity. No pneumothorax. Unchanged heart size . Impression: 1. Small bilateral pleural effusions. 2. Patchy left basilar opacity, may represent atelectasis or consolidation. Electronically signed by: Lito Alatorre DO (02/25/2022 1:06 PM) [facility]
[2022-02-25] MEDS ORDERED: AZITHROMYCIN 500 MG in IV NORMAL SALINE 250ML 250 ML IV ONE (13:30)
[2022-02-25 13:38] LABS: BASO % 0 % (0-3); EOS # 0.2 x10^3/uL (0.0-0.7); EOS % 2 % (0-3); LYMPH # 1.1 x10^3/uL (1.0-4.8); LYMPH % 12 % (24-48); MEAN CORPUSCULAR HEMOGLOBIN 21 pg (25-35); MEAN CORPUSCULAR HGB CONC 30 g/dL (31-37); MEAN CORPUSCULAR VOLUME 70 fL (79-100); MONO # 0.9 x10^3/uL (0.0-1.1); MONO % 9 % (0-9); NEUT # 7.6 x10^3uL (1.8-7.7); NEUT % 78 % (31-73); PLATELET COUNT 520 x10^3/uL (140-400); RED BLOOD COUNT 3.31 x10^6/uL (3.50-5.40); RED CELL DISTRIBUTION WIDTH 18.5 % (11.5-14.5); WHITE BLOOD COUNT 9.8 x10^3/uL (4.0-11.0)
[2022-02-25] MEDS ORDERED: cefTRIAXone SODIUM 1 GM VIAL ONE (13:39)
[2022-02-25] MEDS ORDERED: IV NORMAL SALINE 50ML 50 ML ONE (13:39)
[2022-02-25] MEDS ORDERED: IV NORMAL SALINE 250ML 250 ML ONE (13:39)
[2022-02-25] MEDS ORDERED: AZITHROMYCIN 500 MG VIAL. IV ONE (13:39)
[2022-02-25 13:41] LABS: HEMOGLOBIN 6.8 g/dL (12.0-15.5)
[2022-02-25 13:44] LABS: GFR 52.8; POTASSIUM 4.7 mmol/L (3.5-5.1)
[2022-02-25 13:57] LABS: ALBUMIN/GLOBULIN RATIO 1.1 (1.0-1.7); TOTAL BILIRUBIN 0.2 mg/dL (0.2-1.0); TOTAL PROTEIN 5.7 g/dL (6.4-8.2)
[2022-02-25] MEDS ORDERED: ONDANSETRON PF 4 MG/2 ML VIAL. IVP PRN (14:00)
[2022-02-25 14:13] LABS: ANISOCYTOSIS SLIGHT; HYPOCHROMIA SLIGHT; PLT ESTIMATE INCREASED (ADEQUATE)
[2022-02-25 17:45] VITALS: BP 123/64
[2022-02-25 18:08] VITALS: BP 119/78
--- NOTE | 2022-02-25 18:34 | EKG ---
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
== END 2022-02-25 18:30 | disposition short-term general hospital (02) ==
LOC: ER 12:14 → ER HOLD 13:53 → UNDOADMIN 13:53
DX: J18.9 Pneumonia, unspecified organism (principal); I21.4 Non-ST elevation (NSTEMI) myocardial infarction; D64.9 Anemia, unspecified; K21.9 Gastro-esophageal reflux disease without esophagitis; J44.9 Chronic obstructive pulmonary disease, unspecified; I11.0 Hypertensive heart disease with heart failure; I50.9 Heart failure, unspecified; Z86.2 Personal history of diseases of the blood and blood-forming organs and certain disorders involving the immune mechanism
CPT/HCPCS: 36415; 36430; 71045; 80053; 83880; 84484; 85025; 86850; 86900; 86901; 86920; 93005; 96365; 96375; 99285; J0456; J0696; J7050; P9016; 96367